=== PATIENT | female | born 1995 | race Two or more races ===

== ENCOUNTER 2019-09-23 11:36 | Emergency (ER) | payer MEDICAID, OTHER ==
[2019-09-23] MEDS ORDERED: METHYLPREDNISOLONE ACETATE INJ 40 MG/1 ML ML IM ONE (11:59)
[2019-09-23] MEDS ORDERED: DEXAMETHASONE SOD PHOS INJ 10 MG/1 ML VIAL IM ONE (11:59)
--- NOTE | 2019-09-23 12:02 | ER Document Report ---
HPI - HPI Onset: Other - This is a 23-year-old female presents to the emergency room today stating she had a cough runny nose congestion was starting 2 days ago moving into her upper respiratory area she has been afebrile no nausea no vomiting. She does have positive postnasal discharge. Pain Level: 2 Associated Symptoms: None, Rhinnorhea Exacerbated by: Denies - CONSTITUTIONAL Constitutional: DENIES: Fever, Chills - REPRODUCTIVE LMP: 08/31/19 Reproductive: DENIES: : Past Medical History - Social History Smoking Status: Current Every Day Smoker Chew tobacco use (# tins/day): No Frequency of alcohol use: None Drug Abuse: None Family History: None Patient has suicidal ideation: No Patient has homicidal ideation: No - Past Medical History Cardiac Medical History: Denies: Hx Coronary Artery Disease, Hx Heart Attack, Hx Hypertension Pulmonary Medical History: Denies: Hx Asthma, Hx Bronchitis, Hx COPD, Hx Pneumonia Neurological Medical History: Denies: Hx Cerebrovascular Accident, Hx Seizures GI Medical History: Musculoskeletal Medical History: Denies Hx Arthritis Infectious Medical History: Past Surgical History: Denies: Hx Pacemaker - Immunizations Immunizations up to date: Yes Hx Diphtheria, Pertussis, Tetanus Vaccination: Yes Vertical Provider Document - CONSTITUTIONAL Agree With Documented VS: Yes - INFECTION CONTROL TRAVEL OUTSIDE OF THE [place] IN LAST 30 DAYS: No - HEENT HEENT: Atraumatic, Conjuctival Injection, Normocephalic, PERRLA - NECK Neck: Normal Inspection - RESPIRATORY Respiratory: Breath Sounds Normal - CARDIOVASCULAR Pulses: Normal: Brachial, Radial, Carotid, Femoral, Popliteal - GI/ABDOMEN Gastrointestinal: Abdomen Soft, Abdomen Non-Tender - BACK Back: Normal Inspection Discharge - Discharge Clinical Impression: Allergic rhinitis Condition: Good Disposition: HOME, SELF-CARE Instructions: Reactive Airway Disease ([facility]) Prescriptions: Loratadine 10 mg PO QAM #30 tab.rapdis Referrals: PRATIBHA KIRKLAND MD [Primary Care Provider] - Follow up as needed
== END 2019-09-23 12:33 | disposition home or self-care (01) ==
LOC: ER 11:36
DX: J30.9 Allergic rhinitis, unspecified (principal); R05 Cough; R09.82 Postnasal drip; F17.200 Nicotine dependence, unspecified, uncomplicated
CPT/HCPCS: 99283; 96372; J1030; J1100

== ENCOUNTER → 2019-10-11 | Outpatient (CLI) | payer MEDICAID ==
--- NOTE | 2019-10-11 11:33 | ER RDC ASSESSMENT REPORT ---
Intake - In the Last 14 days Have you traveled outside [place]?: No Have you been in close contact with someone CONFIRMED: No Worked in Healthcare?: No - Symptoms Subjective Fever(Whick feverish): Yes Chills: Yes Muscule Aches: Yes Runny Nose: No Sore Throat: Yes Cough (New or worsening chronic cough): Yes Shortness of breath: Yes Nausea or Vomiting: Yes Headache: No Abdominal Pain: No Diarrhea(3 or more loose stools in last 24 hours): Yes - Do you have any of the following Chronic lung disease: Asthma or emphysema or COPD: Yes Chronic Lung Disease Comment: asthma Cystic Fibrosis: No Diabetes: Yes High Blood Pressure: No Cardiovascular Disease: No Chronic Kidney Disease: No Chronic Liver Disease: No Chronic blood disorder like Sickle Cell Disease: No Weak immune system due to disease or medication: No Neurologic condition that limits movement: No Developmental delay - Moderate to Severe: No Recent (within past 2 weeks) or current : No Morbid Obesity (>100 pounds over ideal weight): Yes - Objective Objective: Given above, testing performed: If Testing Performed: Test Specimen Type Sent to <JODIE ALANIZ - Last Filed: 10/11/19 11:28> - In the Last 14 days Have you traveled outside [place]?: No Have you been in close contact with someone CONFIRMED: No Worked in Healthcare?: No - Symptoms Subjective Fever(Whick feverish): Yes Chills: Yes Muscule Aches: Yes Runny Nose: Yes Sore Throat: Yes Cough (New or worsening chronic cough): Yes Shortness of breath: Yes Nausea or Vomiting: Yes Headache: No Abdominal Pain: No Diarrhea(3 or more loose stools in last 24 hours): Yes - Do you have any of the following Chronic lung disease: Asthma or emphysema or COPD: Yes Cystic Fibrosis: No Diabetes: Yes High Blood Pressure: No Cardiovascular Disease: No Chronic Kidney Disease: No Chronic Liver Disease: No Chronic blood disorder like Sickle Cell Disease: No Weak immune system due to disease or medication: No Neurologic condition that limits movement: No Developmental delay - Moderate to Severe: No Recent (within past 2 weeks) or current : No Morbid Obesity (>100 pounds over ideal weight): Yes - Objective Temperature: 97.7 F Pulse Rate: 110 Respiratory Rate: 20 Blood Pressure: 137/80 Objective: Given above, testing performed: If Testing Performed: Test Specimen Type Sent to <TARUN LINDA - Last Filed: 10/11/19 13:51> General - General Mode of Arrival: Ambulatory Information source: Patient - HPI Patient complains to provider of: fever 102, dry cough, SOB, sore throat Onset: Other - 10/08/2019 Onset/Duration: Gradual Quality of pain: No pain Associated symptoms: Body/muscle aches, Chills, Fever, Nausea, Rhinnorhea, Shortness of breath, Sore throat Similar symptoms previously: No Recently seen / treated by doctor: No <JODIE ALANIZ - Last Filed: 10/11/19 11:28> - General Information source: Patient - HPI Onset/Duration: Gradual Quality of pain: No pain Associated symptoms: Body/muscle aches, Chills, Fever, Nausea, Rhinnorhea, Shortness of breath, Sore throat Similar symptoms previously: No Recently seen / treated by doctor: No <LEANNE LINDAJESSICAMUMTAZ - Last Filed: 10/11/19 13:51> - General Chief Complaint: Flu Symptoms Stated Complaint: dry cough, SOB, fever 102 - Related Data Allergies/Adverse Reactions: Penicillins Allergy (Severe, Verified 09/23/19 11:53) unknown Sulfa (Sulfonamide Antibiotics) Allergy (Verified 09/23/19 11:53) cranberry Allergy (Uncoded 09/23/19 11:53) Past Medical History - Social History Family History: None - Past Medical History Cardiac Medical History: Denies: Hx Coronary Artery Disease, Hx Heart Attack, Hx Hypertension Pulmonary Medical History: Denies: Hx Asthma, Hx Bronchitis, Hx COPD, Hx Pneumonia Neurological Medical History: Denies: Hx Cerebrovascular Accident, Hx Seizures GI Medical History: Musculoskeletal Medical History: Denies Hx Arthritis Infectious Medical History: Past Surgical History: Denies: Hx Pacemaker <KATTYJODIE - Last Filed: 10/11/19 11:28> - General Information source: Patient <TARUN LINDA - Last Filed: 10/11/19 13:51> Physical Exam - General General appearance: Appears well, Alert In distress: None Notes: PHYSICAL EXAMINATION: GENERAL: Well-appearing and in no acute distress. HEAD: Atraumatic, normocephalic. EYES: sclera anicteric, conjunctiva are normal. ENT: nares patent. Moist mucous membranes. No potential airway compromise NECK: Normal range of motion, supple without lymphadenopathy LUNGS: Occasional dry cough with scattered wheezing HEART: Regular rate and rhythm without murmurs NEUROLOGICAL: Normal speech. PSYCH: Normal mood, normal affect. SKIN: Warm, Dry, normal turgor <TARUN LINDA - Last Filed: 10/11/19 13:51> Diagnostic Results Laboratory Results: Patient presents with upper respiratory symptoms worrisome for possible Covid 19. Patient does not have emergency worring symptoms such as difficulty breathing, shortness of breath, chest pain, pressure, confusion or cyanosis. Patient appears suitable for discharge. Patient's vital signs are stable and patient is nontoxic in appearance. Good return precautions have been discussed with patient, patient verbalized understanding and is agreeable with discharge plan of care at this time. <TARUN LINDA - Last Filed: 10/11/19 13:51> Patient Education/Counseling Counseling/Education: Patient advised that she is being tested through the respiratory diagnostic center and encouraged to contact either her primary doctor or the emergency department where she did start having any worsening of symptoms. Patient feels that she is stable and can manage her symptoms at home at this time. Patient was provided with discharge information including: As a person under investigation for Covid 19, the [place] department of Health and Human Services, division of public health advises you to adhere to the following guidance until your test results are reported to you. If your test result is positive, you will receive additional information from your provider and your local health department at that time. Remain at home until you are cleared by the health provider or public health authorities. Keep a log of visitors to your home, notify any visitors to your home of your isolation status. If you plan to move to a new address or leave the county, notify the local health department in your County. Call your doctor or seek care if you have an urgent medical need. Before seeking medical care, call ahead to get instructions from the provider before arriving at the medical office clinic or hospital. Notify them that you are being tested for the virus that causes Covid 19 so that arrangements can be made, as necessary, to prevent transmission to others in the healthcare setting. Next, notify the local health department in your county. If a medical emergency arises and you need to call 911, inform the first responders that you are being tested for the virus that causes Covid 19. Next, notify the local health department in your county. <TARUN LINDA - Last Filed: 10/11/19 13:51> RDC Discharge <JODIE ALANIZ - Last Filed: 10/11/19 11:28> - Discharge Disposition: Home; Selfcare <TARUN LINDA - Last Filed: 10/11/19 13:51> - Discharge Clinical Impression: covid-19 screening Upper respiratory infection Qualifiers: URI type: unspecified URI Qualified Code(s): J06.9 - Acute upper respiratory infection, unspecified Condition: Stable
[2019-10-11 12:25] VITALS: BP 137/80
[2019-10-11 13:41] LABS: A TYPE INFLUENZA AG NEGATIVE (NEGATIVE); B INFLUENZA AG NEGATIVE (NEGATIVE)
== END ==
LOC: RDC 11:14
PROVIDERS: ATTEND Nurse Practitioner Family
DX: Z20.828 Contact with and (suspected) exposure to other viral communicable diseases (principal); J06.9 Acute upper respiratory infection, unspecified; J02.9 Acute pharyngitis, unspecified; R50.9 Fever, unspecified; R09.89 Other specified symptoms and signs involving the circulatory and respiratory systems; M79.10 Myalgia, unspecified site; R06.02 Shortness of breath; R19.7 Diarrhea, unspecified; E11.9 Type 2 diabetes mellitus without complications; Z88.0 Allergy status to penicillin; Z88.2 Allergy status to sulfonamides; Z91.018 Allergy to other foods
CPT/HCPCS: 87070; 87635; 87804; 87880

== ENCOUNTER 2019-11-09 23:23 | Emergency (ER) | payer SELFPAY ==
--- NOTE | 2019-11-09 23:43 | ER Document Report ---
ED Medical Screen (RME) - General Chief Complaint: Urinary Problem Stated Complaint: URINATING BLOOD/VAGINAL PAIN Time Seen by Provider: 11/09/19 23:40 Mode of Arrival: Ambulatory Information source: Patient Notes: This 24-year-old female with history of diabetes and asthma presents today with complaints of lower abdominal pain, urinary frequency, pain with void, hematuria. Report symptoms started today. Denies fever vomiting diarrhea. Denies back pain. I have greeted and performed a rapid initial assessment of this patient. A comprehensive ED assessment and evaluation of the patient, analysis of test results and completion of the medical decision making process will be conducted by additional ED providers. TRAVEL OUTSIDE OF THE [place] IN LAST 30 DAYS: No - Related Data Allergies/Adverse Reactions: Penicillins Allergy (Severe, Verified 09/23/19 11:53) unknown Sulfa (Sulfonamide Antibiotics) Allergy (Verified 09/23/19 11:53) cranberry Allergy (Uncoded 09/23/19 11:53) Past Medical History - Past Medical History Cardiac Medical History: Denies: Hx Coronary Artery Disease, Hx Heart Attack, Hx Hypertension Pulmonary Medical History: Denies: Hx Asthma, Hx Bronchitis, Hx COPD, Hx Pneumonia Neurological Medical History: Denies: Hx Cerebrovascular Accident, Hx Seizures GI Medical History: Musculoskeltal Medical History: Denies Hx Arthritis Infectious Medical History: Past Surgical History: Denies: Hx Pacemaker - Immunizations Immunizations up to date: Yes Hx Diphtheria, Pertussis, Tetanus Vaccination: Yes Physical Exam - Vital signs Vitals: Temp Pulse Resp BP Pulse Ox 98.6 F 116 H 20 149/106 H 99 11/09/19 23:35 11/09/19 23:35 11/09/19 23:35 11/09/19 23:35 11/09/19 23:35 Course - Vital Signs Vital signs: Temp Pulse Resp BP Pulse Ox 98.6 F 116 H 20 149/106 H 99 11/09/19 23:35 11/09/19 23:35 11/09/19 23:35 11/09/19 23:35 11/09/19 23:35
[2019-11-10 00:24] LABS: ABSOLUTE BASOPHILS # (AUTO) 0.2 10^3/uL (0.0-0.2); ABSOLUTE EOSINOPHILS # (AUTO) 0.6 10^3/uL (0.0-0.6); ABSOLUTE LYMPHOCYTES (AUTO) 3.4 10^3/uL (0.5-4.7); ABSOLUTE NEUT (AUTO) 14.3 10^3/uL (1.7-8.2); BASOPHILS % (AUTO) 1.2 % (0-2); EOSINOPHILS % (AUTO) 3.2 % (0-6); HEMATOCRIT 37.6 % (36.0-47.0); HEMOGLOBIN 12.5 g/dL (12.0-15.5); LYMPHOCYTES % (AUTO) 17.6 % (13-45); MEAN CORPUSCULAR HEMOGLOBIN 27.4 pg (27.0-33.4); MEAN CORPUSCULAR HGB CONC 33.3 g/dL (32.0-36.0); MEAN CORPUSCULAR VOLUME 82 fl (80-97); MONOCYTES % (AUTO) 5.1 % (3-13); PLATELET COUNT 519 10^3/uL (150-450); RED BLOOD COUNT 4.58 10^6/uL (3.72-5.28); RED CELL DISTRIBUTION WIDTH 15.5 % (11.5-14.0); SEGMENTED NEUTROPHILS % (AUTO) 72.9 % (42-78); TOTAL CELLS COUNTED % (AUTO) 100 %; WHITE BLOOD COUNT 19.6 10^3/uL (4.0-10.5)
[2019-11-10 00:31] LABS: APPEARANCE,URINE CLOUDY; BILIRUBIN,URINE NEGATIVE (NEGATIVE); COLOR,URINE YELLOW; GLUCOSE, URINE NEGATIVE (NEGATIVE); KETONES,URINE NEGATIVE (NEGATIVE); LEUKOCYTE ESTERASE,URINE MODERATE (NEGATIVE); NITRITE,URINE NEGATIVE (NEGATIVE); PROTEIN,URINE 30 mg/dL (NEGATIVE); URINE SPECIFIC GRAVITY 1.013; UROBILINOGEN,URINE NEGATIVE mg/dL (<2.0)
[2019-11-10 00:43] LABS: ALBUMIN 3.8 g/dL (3.5-5.0); ALKALINE PHOSPHATASE 98 U/L (38-126); ANION GAP 8 (5-19); ASPARTATE AMINO TRANSFERASE 55 U/L (14-36); BILIRUBIN,TOTAL 0.3 mg/dL (0.2-1.3); BLOOD UREA NITROGEN 9 mg/dL (7-20); CALCIUM 9.2 mg/dL (8.4-10.2); CARBON DIOXIDE 27 mmol/L (22-30); CHLORIDE 100 mmol/L (98-107); GLUCOSE 135 mg/dL (75-110); POTASSIUM 4.1 mmol/L (3.6-5.0); TOTAL PROTEIN 7.4 g/dL (6.3-8.2)
[2019-11-10] MEDS ORDERED: RINGERS SOLUTION,LACTATED 1,000 ML IV ONE (03:30)
--- NOTE | 2019-11-10 03:32 | ER Document Report ---
ED GI/ - General Chief Complaint: Pain With Urination Stated Complaint: URINATING BLOOD/VAGINAL PAIN Time Seen by Provider: 11/09/19 23:40 Primary Care Provider: JOZEF DOHERTY PA-C [Primary Care Provider] - Follow up as needed Mode of Arrival: Ambulatory Information source: Patient Notes: 24-year-old female past medical history significant for diabetes, asthma, re current UTIs presents to the emergency room complaining of dysuria that started yesterday. States she took Azo without relief. Woke up early this morning to pee and noticed that there was blood in her urine. She denies any fevers. No other medications or symptoms. States hasnever followed up with urology that her UTIs are managed by her primary care physician. TRAVEL OUTSIDE OF THE [place] IN LAST 30 DAYS: No - Related Data Allergies/Adverse Reactions: Penicillins Allergy (Severe, Verified 09/23/19 11:53) unknown ciprofloxacin [From Cipro] Allergy (Verified 11/10/19 04:43) Sulfa (Sulfonamide Antibiotics) Allergy (Verified 09/23/19 11:53) cranberry Allergy (Uncoded 09/23/19 11:53) Home Medications: metformin 1g BID. QVar MDI 2 puff daily. Albuterol MDI PRN Past Medical History - General Information source: Patient - Social History Smoking Status: Current Every Day Smoker Chew tobacco use (# tins/day): No Frequency of alcohol use: Rare Drug Abuse: None Lives with: Family Family History: None Patient has homicidal ideation: No - Past Medical History Cardiac Medical History: Denies: Hx Coronary Artery Disease, Hx Heart Attack, Hx Hypertension Pulmonary Medical History: Reports: Hx Asthma Denies: Hx Bronchitis, Hx COPD, Hx Pneumonia Neurological Medical History: Denies: Hx Cerebrovascular Accident, Hx Seizures Endocrine Medical History: Reports: Hx Diabetes Mellitus Type 2 GI Medical History: Musculoskeletal Medical History: Denies Hx Arthritis Infectious Medical History: Past Surgical History: Denies: Hx Pacemaker - Immunizations Immunizations up to date: Yes Hx Diphtheria, Pertussis, Tetanus Vaccination: Yes Review of Systems - Review of Systems Constitutional: No symptoms reported Cardiovascular: No symptoms reported Respiratory: No symptoms reported Gastrointestinal: No symptoms reported Genitourinary: Dysuria, Hematuria, Urgency Musculoskeletal: No symptoms reported Skin: No symptoms reported Neurological/Psychological: No symptoms reported -: Yes All other systems reviewed and negative Physical Exam - Vital signs Vitals: Temp Pulse Resp BP Pulse Ox 98.6 F 116 H 20 149/106 H 99 11/09/19 23:35 11/09/19 23:35 11/09/19 23:35 11/09/19 23:35 11/09/19 23:35 - General General appearance: Appears well, Alert In distress: Mild - HEENT Head: Normocephalic, Atraumatic Eyes: Normal Pupils: PERRL - Respiratory Respiratory status: No respiratory distress Chest status: Nontender Breath sounds: Normal Chest palpation: Normal - Cardiovascular Rhythm: Tachycardia Heart sounds: Normal auscultation Murmur: No Friction rub: No - Abdominal Inspection: Morbidly Obese Distension: No distension Tenderness: Tender - Right lower quadrant. No: Guarding, Rebound Organomegaly: No organomegaly - Back Back: Normal. No: CVA tenderness - Neurological Neuro grossly intact: Yes Cognition: Normal Orientation: AAOx4 Antony Coma Scale Eye Opening: Spontaneous Antony Coma Scale Verbal: Oriented Cartwright Coma Scale Motor: Obeys Commands Cartwright Coma Scale Total: 15 Speech: Normal Motor strength normal: LUE, RUE, LLE, RLE Sensory: Normal - Skin Skin Temperature: Warm Skin Moisture: Dry Skin Color: Normal Course - Re-evaluation Re-evalutation: 11/10/19 04:35 Nurse notified provider that after starting the IV Cipro patient started complaining of itching and redness at the IV site. Patient has a history as to both penicillin and sulfa. Patient was diagnosed with medication allergies by blood test as a child. IV Cipro was DC'd will hold off on any other antibiotics untill CT abdomen and pelvis is completed. 11/10/19 05:33 Patient is resting comfortably she is pain-free on exam. Site of erythema and itching at the IV site to the right antecubital has resolved after stopping IV Cipro. Patient was counseled to stop her metformin for the next 48 hours after receivin g IV contrast dye. Push fluids. Antibiotics as prescribed. Patient was counseled on need to follow-up with her primary care physician for possible urology referral secondary to her frequent UTIs. She was given strict return to the emergency room guidelines. Return for any new or worsening symptoms. All questions were answered. Patient verbalized understanding and agrees with plan of care. - Vital Signs Vital signs: Temp Pulse Resp BP Pulse Ox 98.3 F 93 15 136/74 H 100 11/10/19 06:52 11/10/19 06:52 11/10/19 06:52 11/10/19 06:52 11/10/19 06:52 - Laboratory Result Diagrams: 11/10/19 00:10 11/10/19 00:10 Laboratory results interpreted by me: 11/10/19 11/10/19 11/10/19 00:00 00:10 00:10 WBC 19.6 H RDW 15.5 H Plt Count 519 H Absolute Neuts (auto) 14.3 H Sodium 134.9 L Glucose 135 H AST 55 H ALT 58 H Urine Protein 30 H Urine Blood LARGE H Ur Leukocyte Esterase MODERATE H - Diagnostic Test Radiology reviewed: Reports reviewed Discharge - Discharge Clinical Impression: Pain, abdominal, unknown etiology UTI (urinary tract infection) Qualifiers: Urinary tract infection type: site unspecified Hematuria presence: with hematuria Qualified Code(s): N39.0 - Urinary tract infection, site not specified Leukocytosis Qualifiers: Leukocytosis type: unspecified Qualified Code(s): D72.829 - Elevated white blood cell count, unspecified Condition: Stable Disposition: HOME, SELF-CARE Instructions: Abdominal Pain ([facility]), Leukocytosis ([facility]), Nitrofurantoin ([facility]), Urinary Tract Infection ([facility]) Additional Instructions: Push fluids, antibiotics as prescribed. Do not take your metformin for the next 48 hours. Outpatient follow-up primary care physician return for any new or worsening symptoms. Prescriptions: Nitrofurantoin Monohyd/M-Cryst [Macrobid 100 mg Capsule] 100 mg PO BID 7 Days #13 cap Phenazopyridine HCl [Pyridium 200 mg Tablet] 200 mg PO TID 2 Days #6 tablet Referrals: JOZEF DOHERTY PA-C [Primary Care Provider] - Follow up as needed
[2019-11-10] MEDS ORDERED: CIPROFLOXACIN 400 MG/D5W RTU 400 MG/200 ML RTUPB IV SCH (04:00)
--- NOTE | 2019-11-10 05:21 | RADIOLOGY REPORT (SQ) ---
EXAM: CT abdomen and pelvis with IV contrast CLINICAL DATA: 24-year-old female with abdominal pain, hematuria and dysuria TECHNICAL DATA: Axial CT imaging of the abdomen and pelvis was performed following the administration of intravenous contrast.. Sagittal and coronal reconstructed images were then performed. The CT study is performed according to ALARA (as low as reasonably achievable) or ALARA/IMAGE GENTLY, with automatic adjustment of mA and/or kV according to patient size. Performed on: 11/10/2019 at 4:50 AM. Comparison: Abdominal ultrasound performed on 07/31/2012 FINDINGS: Lung bases: The lung bases are clear. Liver: The liver is enlarged and measures 24 cm in craniocaudal dimension. No focal hepatic abnormalities are identified. There is diffusely decreased attenuation of the liver commonly due to fatty infiltration. Spleen:The spleen is normal is size, configuration and attenuation. Gallbladder and bile duct: The gallbladder is surgically absent. There is no biliary ductal dilatation. Pancreas: The pancreas is grossly normal in size and configuration. Adrenal Glands:The adrenal glands are normal in size and configuration. Kidneys:The kidneys are normal in size and configuration. There is no evidence of hydronephrosis. There is no evidence of nephrolithiasis. There is an approximately 2.2 x 2.9 cm focal area of decreased attenuation within the midpole of the right kidney. Statistically, this likely represents a benign renal cyst. Stomach:The stomach is grossly normal. There is no definite hiatal hernia. Bowel:The bowel gas pattern is non specific and non obstructive. Appendix: The appendix is normal. Free air:There is no evidence of free air. Free fluid: There is no evidence of free fluid. Vasculature: The aorta is normal in caliber and contour. The inferior vena cava is grossly unremarkable. Lymphadenopathy: No pathologic lymphadenopathy is identified. Bladder: The bladder is partially distended and smooth in contour. Reproductive: The uterus is grossly within normal limits. Bones: No acute osseous abnormalities are identified. Soft tissues: No focal soft tissue abnormalities are identified. IMPRESSION: 1. Hepatomegaly and fatty infiltration of the liver. 2. Remote cholecystectomy. 3. Approximately 2.9 cm focal area of decreased attenuation in the mid pole of the right kidney. Statistically this likely represents a benign renal cyst. 4. No evidence of acute intra-abdominal or intrapelvic pathology. There is no evidence of urinary tract obstruction or evidence of acute bowel pathology.
[2019-11-10] MEDS ORDERED: NITROFURANTOIN MONOHYD/M-CRYST 100 MG CAPSULE PO ONE (05:31)
[2019-11-10 06:55] VITALS: BP 136/74
== END 2019-11-10 06:52 | disposition home or self-care (01) ==
LOC: ER 23:23
DX: N39.0 Urinary tract infection, site not specified (principal); R31.0 Gross hematuria; R10.9 Unspecified abdominal pain; R10.813 Right lower quadrant abdominal tenderness; R30.0 Dysuria; R39.15 Urgency of urination; L29.9 Pruritus, unspecified; L53.9 Erythematous condition, unspecified; F17.200 Nicotine dependence, unspecified, uncomplicated; E11.9 Type 2 diabetes mellitus without complications; J45.909 Unspecified asthma, uncomplicated; Z79.51 Long term (current) use of inhaled steroids; Z79.84 Long term (current) use of oral hypoglycemic drugs; Z88.0 Allergy status to penicillin; Z88.1 Allergy status to other antibiotic agents; Z88.2 Allergy status to sulfonamides; Z91.018 Allergy to other foods
CPT/HCPCS: 99284; 96361; 96374; 36415; 87040; 83605; 85025; 81025; 80053; 81001; 74177; J7120; J0744; J8499

== ENCOUNTER 2020-05-28 12:57 | Emergency (ER) | payer SELFPAY ==
[2020-05-28] MEDS ORDERED: NORMAL SALINE 1000 ML 1,000 ML IV ONE (13:44)
--- NOTE | 2020-05-28 13:46 | ER Document Report ---
ED Medical Screen (RME) - General Chief Complaint: Flank Pain Stated Complaint: FLANK PAIN Time Seen by Provider: 05/28/20 13:31 Primary Care Provider: JOZEF DOHERTY PA-C [Primary Care Provider] - Follow up as needed TRAVEL OUTSIDE OF THE [place] IN LAST 30 DAYS: No - HPI Notes: 05/28/20 13:44 23-year-old female with a history of type 2 diabetes on Metformin presents to the emergency room today with right upper quadrant abdominal pain and flank pain that has become progressively worse over the last 3 days. Patient felt she was having a UTI, she started taking AZO without relief. Denies any vaginal bleeding or vaginal discharge. States she checked her blood sugar this morning and it was 351, she does take Metformin 1 g twice daily. Last menstrual cycle was 05/20/2020. Reports she has had some nausea and vomiting over the last 2 days. Has increased polyuria, polydipsia, denies polyphagia. Denies history of DKA I have greeted and performed a rapid initial assessment of this patient. A comprehensive ED assessment and evaluation of the patient, analysis of test results and completion of the medical decision making process will be conducted by additional ED providers. PHYSICAL EXAMINATION: GENERAL: Well-appearing, well-nourished and in no acute distress. HEAD: Atraumatic, normocephalic. CV: s1, s2 regular LUNGS: No respiratory distress abd: RUQ abd tenderness, R cva tenderness on exam - Related Data Allergies/Adverse Reactions: Penicillins Allergy (Severe, Verified 05/28/20 13:23) unknown ciprofloxacin [From Cipro] Allergy (Verified 05/28/20 13:23) Sulfa (Sulfonamide Antibiotics) Allergy (Verified 05/28/20 13:23) cranberry Allergy (Uncoded 05/28/20 13:23) Past Medical History - Social History Chew tobacco use (# tins/day): No Frequency of alcohol use: None Drug Abuse: None - Past Medical History Cardiac Medical History: Denies: Hx Coronary Artery Disease, Hx Heart Attack, Hx Hypertension Pulmonary Medical History: Reports: Hx Asthma Denies: Hx Bronchitis, Hx COPD, Hx Pneumonia Neurological Medical History: Denies: Hx Cerebrovascular Accident, Hx Seizures Endocrine Medical History: Reports: Hx Diabetes Mellitus Type 2 GI Medical History: Musculoskeltal Medical History: Denies Hx Arthritis Infectious Medical History: Past Surgical History: Denies: Hx Pacemaker - Immunizations Immunizations up to date: Yes Hx Diphtheria, Pertussis, Tetanus Vaccination: Yes Physical Exam - Vital signs Vitals: Temp Pulse Resp BP Pulse Ox 97.9 F 123 H 20 154/93 H 100 05/28/20 13:03 05/28/20 13:03 05/28/20 13:03 05/28/20 13:03 05/28/20 13:03 Course - Vital Signs Vital signs: Temp Pulse Resp BP Pulse Ox 97.9 F 123 H 20 154/93 H 100 05/28/20 13:03 05/28/20 13:03 05/28/20 13:03 05/28/20 13:03 05/28/20 13:03 Doctor's Discharge - Discharge Referrals: JOZEF DOHERTY PA-C [Primary Care Provider] - Follow up as needed
[2020-05-28 14:42] LABS: ABSOLUTE BASOPHILS # (AUTO) 0.2 10^3/uL (0.0-0.2); ABSOLUTE EOSINOPHILS # (AUTO) 0.6 10^3/uL (0.0-0.6); ABSOLUTE LYMPHOCYTES (AUTO) 3.7 10^3/uL (0.5-4.7); ABSOLUTE MONOCYTES (AUTO) 0.8 10^3/uL (0.1-1.4); ABSOLUTE NEUT (AUTO) 8.2 10^3/uL (1.7-8.2); BASOPHILS % (AUTO) 1.2 % (0-2); EOSINOPHILS % (AUTO) 4.6 % (0-6); HEMATOCRIT 39.2 % (36.0-47.0); HEMOGLOBIN 12.8 g/dL (12.0-15.5); LYMPHOCYTES % (AUTO) 27.1 % (13-45); MEAN CORPUSCULAR HGB CONC 32.5 g/dL (32.0-36.0); MEAN CORPUSCULAR VOLUME 83 fl (80-97); MONOCYTES % (AUTO) 6.2 % (3-13); PLATELET COUNT 436 10^3/uL (150-450); RED BLOOD COUNT 4.72 10^6/uL (3.72-5.28); RED CELL DISTRIBUTION WIDTH 15.3 % (11.5-14.0); SEGMENTED NEUTROPHILS % (AUTO) 60.9 % (42-78); TOTAL CELLS COUNTED % (AUTO) 100 %; WHITE BLOOD COUNT 13.5 10^3/uL (4.0-10.5)
[2020-05-28 14:59] LABS: ANION GAP 8 (5-19)
[2020-05-28 16:04] LABS: ALBUMIN 3.9 g/dL (3.5-5.0); ALKALINE PHOSPHATASE 112 U/L (38-126); ASPARTATE AMINO TRANSFERASE 79 U/L (14-36); BILIRUBIN,DIRECT 0.2 mg/dL (0.0-0.4); BILIRUBIN,TOTAL 0.3 mg/dL (0.2-1.3); BLOOD UREA NITROGEN 9 mg/dL (7-20); CALCIUM 9.6 mg/dL (8.4-10.2); CARBON DIOXIDE 26 mmol/L (22-30); CHLORIDE 103 mmol/L (98-107); GLUCOSE 307 mg/dL (75-110); POTASSIUM 4.6 mmol/L (3.6-5.0); TOTAL PROTEIN 7.6 g/dL (6.3-8.2)
[2020-05-28] MEDS ORDERED: ONDANSETRON 4 MG TAB.RAPDIS PO ONE (16:45)
--- NOTE | 2020-05-28 17:24 | ER Document Report ---
ED GI/ - General Chief Complaint: Flank Pain Stated Complaint: FLANK PAIN Time Seen by Provider: 05/28/20 13:31 Primary Care Provider: JOZEF DOHERTY PA-C [Primary Care Provider] - Follow up as needed Notes: CHIEF COMPLAINT: Dysuria and right flank pain HPI: 24-year-old female who is morbidly obese with type 2 diabetes presenting for evaluation of dysuria over the last 3 days with some pain in the right flank and right upper quadrant region. Has had nausea no vomiting. Low-grade fever. Denies lower abdominal pain. Has been taking Azo at home ROS: See HPI - all other systems were reviewed and are otherwise negative Constitutional: no fever Eyes: no drainage, no blurred vision ENT: no runny nose, no sore throat Cardiovascular: no chest pain Resp: no SOB, no cough GI: no vomiting, no diarrhea, + abdominal pain, positive nausea : + dysuria Integumentary: no rash Allergy: no hives Musculoskeletal: no extremity pain or swelling Neurological: no numbness/tingling, no weakness MEDICATIONS: I agree with the patient medications as charted by the RN. ALLERGIES: I agree with the allergies as charted by the RN. PAST MEDICAL HISTORY/PAST SURGICAL HISTORY: Reviewed and agree as charted by RN. SOCIAL HISTORY: Reviewed and agree as charted by RN. FAMILY HISTORY: No significant familial comorbid conditions directly related to patient complaint EXAM: Reviewed vital signs as charted by RN. CONSTITUTIONAL: Alert and oriented and responds appropriately to questions. Well-appearing; well-nourished HEAD: Normocephalic; atraumatic EYES: Conjunctivae clear, sclerae non-icteric ENT: normal nose; no rhinorrhea; moist mucous membranes NECK: Supple without meningismus; non-tender; no cervical lymphadenopathy, no masses CARD: RRR; no murmurs, no clicks, no rubs, no gallops; symmetric distal pulses RESP: Normal chest excursion without splinting or tachypnea; breath sounds clear and equal bilaterally; no wheezes, no rhonchi, no rales, pulse oximetry 99% on room air not hypoxic ABD/GI: Morbidly obese, normal bowel sounds; non-distended; soft, mild tenderness in the right upper quadrant right lateral flank region on palpation, no rebound, no guarding; no palpable organomegaly or masses. BACK: The back appears normal and is non-tender to palpation, there is no CVA tenderness EXT: Normal ROM in all joints; non-tender to palpation; no cyanosis, no effusions, no edema SKIN: Normal color for age and race; warm; dry; good turgor; no acute lesions noted NEURO: Moves all extremities equally; Motor and sensory function intact PSYCH: The patient's mood and manner are appropriate. Grooming and personal hygiene are appropriate. MDM: 24-year-old female right upper quadrant right flank pain with dysuria. Initial screening labs and work-up through the triage process. Suspect acute cystitis or early pyelonephritis. TRAVEL OUTSIDE OF THE [place] IN LAST 30 DAYS: No - Related Data Allergies/Adverse Reactions: Penicillins Allergy (Severe, Verified 05/28/20 13:23) unknown ciprofloxacin [From Cipro] Allergy (Verified 05/28/20 13:23) Sulfa (Sulfonamide Antibiotics) Allergy (Verified 05/28/20 13:23) cranberry Allergy (Uncoded 05/28/20 13:23) Past Medical History - Social History Smoking Status: Current Every Day Smoker Chew tobacco use (# tins/day): No Frequency of alcohol use: None Drug Abuse: None Family History: None Patient has homicidal ideation: No - Past Medical History Cardiac Medical History: Denies: Hx Coronary Artery Disease, Hx Heart Attack, Hx Hypertension Pulmonary Medical History: Reports: Hx Asthma Denies: Hx Bronchitis, Hx COPD, Hx Pneumonia Neurological Medical History: Denies: Hx Cerebrovascular Accident, Hx Seizures Endocrine Medical History: Reports: Hx Diabetes Mellitus Type 2 GI Medical History: Musculoskeletal Medical History: Denies Hx Arthritis Infectious Medical History: Past Surgical History: Denies: Hx Pacemaker - Immunizations Immunizations up to date: Yes Hx Diphtheria, Pertussis, Tetanus Vaccination: Yes Physical Exam - Vital signs Vitals: Temp Pulse Resp BP Pulse Ox 97.9 F 123 H 20 154/93 H 100 05/28/20 13:03 05/28/20 13:03 05/28/20 13:03 05/28/20 13:03 05/28/20 13:03 Course - Re-evaluation Re-evalutation: 05/28/20 18:24 Patient has had a prior cholecystectomy. Her ultrasound and urine did not show definitive evidence of pyelonephritis. Given her continued discomfort will obtain CT imaging to further evaluate the abdomen for surgical or infectious process. 05/28/20 19:34 CT imaging does not show acute emergent findings. She has a renal cyst on the right which appears to have increased in size over the last 6 months. Will refer patient to urology for follow-up. Patient lab work does not show any actionable items, mild leukocytosis. No definitive causation for her pain today. We will place her on a short course of pain medication. 05/28/20 19:42 I personally rechecked the patient's heart rate and it is 80 by radial pulse. We discussed her findings. She will be discharged to follow-up with urology she has no knowledge of prior renal cyst - Vital Signs Vital signs: Temp Pulse Resp BP Pulse Ox 97.9 F 123 H 20 154/93 H 100 05/28/20 13:03 05/28/20 13:03 05/28/20 13:03 05/28/20 13:03 05/28/20 13:03 - Laboratory Result Diagrams: 05/28/20 14:28 05/28/20 14:28 Laboratory results interpreted by me: 05/28/20 05/28/20 05/28/20 14:28 14:28 17:12 WBC 13.5 H RDW 15.3 H Sodium 136.6 L Glucose 307 H AST 79 H ALT 61 H Urine Glucose (UA) >=500 H Discharge - Discharge Clinical Impression: Abdominal pain, right upper quadrant, Renal cyst Condition: Stable Disposition: HOME, SELF-CARE Additional Instructions: There was not a definitive cause noted for your abdominal pain complaint today. It does not appear that you have a urinary infection. You do have a renal cyst on the right kidney that is increased in size since her previous imaging studies. Follow this up with urology call for appointment. This may be contributing to some of the discomfort that you are having. Pain medication as prescribed no driving if taking narcotics for pain Prescriptions: Tramadol HCl [Ultram 50 mg Tablet] 50 mg PO Q6HP PRN #12 tab PRN Reason: Referrals: JOZEF DOHERTY PA-C [Primary Care Provider] - Follow up as needed
[2020-05-28 17:52] LABS: AMORPHOUS SEDIMENT,URINE TRACE /HPF; APPEARANCE,URINE CLOUDY; BILIRUBIN,URINE NEGATIVE (NEGATIVE); COLOR,URINE YELLOW; GLUCOSE, URINE >=500 mg/dL (NEGATIVE); KETONES,URINE NEGATIVE (NEGATIVE); LEUKOCYTE ESTERASE,URINE NEGATIVE (NEGATIVE); NITRITE,URINE NEGATIVE (NEGATIVE); PROTEIN,URINE NEGATIVE (NEGATIVE); URINE SPECIFIC GRAVITY 1.022; UROBILINOGEN,URINE NEGATIVE mg/dL (<2.0)
--- NOTE | 2020-05-28 18:14 | RADIOLOGY REPORT (SQ) ---
EXAM DESCRIPTION: U/S ABDOMEN LIMITED W/O DOP IMAGES COMPLETED DATE/TIME: 05/28/2020 2:59 pm REASON FOR STUDY: RUQ/RT FLANK PAIN COMPARISON: 07/31/2012 TECHNIQUE: Dynamic and static grayscale images acquired of the abdomen and recorded on PACS. Additio nal selected color Doppler and spectral images recorded. LIMITATIONS: Limited due to body habitus and bowel gas. FINDINGS: PANCREAS: No masses. Visualized pancreatic duct normal caliber. LIVER: Fatty liver. Hepatomegaly, the liver measures 24.8 cm in length. LIVER VASCULATURE: Normal directional flow of the main portal vein and hepatic veins. GALLBLADDER: Prior cholecystectomy. ULTRASOUND-DETECTED MERCHANT'S SIGN: Negative. INTRAHEPATIC DUCTS AND COMMON DUCT: CBD not visualized due to overlying bowel gas. The intrahepatic ducts normal caliber. No filling defects. INFERIOR VENA CAVA: Not imaged. AORTA: No aneurysm. RIGHT KIDNEY: The right kidney measures 12.8 cm in length, normal size. Normal echogenicity. No diana id or suspicious masses. No hydronephrosis. No calcifications. PERITONEAL AND RIGHT PLEURAL SPACE: No ascites or effusions. OTHER: No other significant findings. IMPRESSION: 1. Examination is limited due to patient body habitus and bowel gas. 2. Fatty liver. Hepatomegaly. 3. Prior cholecystectomy. TECHNICAL DOCUMENTATION: JOB ID: [id number] 2010 [email or web address]- All Rights Reserved Reading location - IP/workstation name: [email or web address]
--- NOTE | 2020-05-28 19:30 | RADIOLOGY REPORT (SQ) ---
EXAM DESCRIPTION: CT ABD/PELVIS WITH IV ONLY IMAGES COMPLETED DATE/TIME: 05/28/2020 7:14 pm REASON FOR STUDY: RUQ pain COMPARISON: 11/10/2019 TECHNIQUE: CT scan of the abdomen and pelvis performed using helical scanning technique with dynamic intravenous contrast injection. No oral contrast. Images reviewed with lung, soft tissue, and bone windows. Reconstructed coronal and sagittal MPR images reviewed. Delayed images for evaluation of the urinary system also acquired. All images stored on PACS. All CT scanners at this facility use dose modulation, iterative reconstruction, and/or weight based d osing when appropriate to reduce radiation dose to as low as reasonably achievable (ALARA). [facility]: Dose Right [facility]: CareDose [facility]: Dose Right [facility]: Teradose 4D [facility]: Moat CONTRAST TYPE AND DOSE: contrast/concentration: Isovue 350.00 mmol/ml; Total Contrast Delivered: 98. 9 ml; Total Saline Delivered: 58.9 ml RENAL FUNCTION: None required. The patient is less than 50 years old. RADIATION DOSE: CT Rad equipment meets quality standard of care and radiation dose reduction techniq ues were employed. CTDIvol: NaN - NaN mGy. DLP: 0 mGy-cm.. LIMITATIONS: None. FINDINGS: LOWER CHEST: No significant findings. No nodules or infiltrates. LIVER: Fatty liver. Hepatomegaly. These findings are unchanged from the prior examination. The he patic and portal veins are patent. SPLEEN: Normal size. No focal lesions. PANCREAS: No masses. No significant calcifications. No adjacent inflammation or peripancreatic fluid collections. Pancreatic duct not dilated. GALLBLADDER: No identified stones by CT criteria. No inflammatory changes to suggest cholecystitis. ADRENAL GLANDS: No significant masses or asymmetry. RIGHT KIDNEY AND URETER: The thinly septated hypoattenuated lesion in the mid pole of the kidney has increased in size and measures approximately 4.8 cm in diameter(coronal image 50, series 601, compar ed to 3.1 cm on the prior study). No solid masses. No significant calcifications. No hydronephro sis or hydroureter. LEFT KIDNEY AND URETER: No solid masses. No significant calcifications. No hydronephrosis or hydr oureter. AORTA AND VESSELS: No aneurysm. No dissection. Renal arteries, SMA, celiac without stenosis. RETROPERITONEUM: No retroperitoneal adenopathy, hemorrhage or masses. BOWEL AND PERITONEAL CAVITY: No masses or inflammatory changes. No free fluid or peritoneal masses. APPENDIX: Normal. PELVIS: No mass. No free fluid. Normal bladder. ABDOMINAL WALL: No masses. No hernias. BONES: The osseous structures are stable in appearance. OTHER: No other significant finding. IMPRESSION: 1. The hypoattenuated thinly septated lesion in the mid pole of the right kidney has in creased in size since the prior study dated 11/10/2019. Correlation suggested. 2. Fatty liver. Hepatomegaly. 3. Prior cholecystectomy. TECHNICAL DOCUMENTATION: JOB ID: [id number] Quality ID # [id number]: Final reports with documentation of one or more dose reduction techniques (e.g., Au tomated exposure control, adjustment of the mA and/or kV according to patient size, use of iterative reconstruction technique) 2010 [employer]- All Rights Reserved Reading location - IP/workstation name: [id number]
[2020-05-28 19:48] VITALS: BP 120/66
== END 2020-05-28 19:55 | disposition home or self-care (01) ==
LOC: ER 12:57
DX: N28.1 Cyst of kidney, acquired (principal); R10.9 Unspecified abdominal pain; R30.0 Dysuria; R11.0 Nausea; R50.9 Fever, unspecified; E66.01 Morbid (severe) obesity due to excess calories; E11.9 Type 2 diabetes mellitus without complications; Z88.0 Allergy status to penicillin; Z88.3 Allergy status to other anti-infective agents; Z88.2 Allergy status to sulfonamides; Z90.49 Acquired absence of other specified parts of digestive tract
CPT/HCPCS: 99285; 36415; 84702; 83690; 85025; 80053; 81001; 76705; 74177; S0119

== ENCOUNTER 2020-05-29 18:03 | Emergency (ER) | payer SELFPAY ==
--- NOTE | 2020-05-29 19:17 | ER Document Report ---
ED General - General Chief Complaint: Bloody Stools Stated Complaint: POSSIBLE BLOODY STOOL Time Seen by Provider: 05/29/20 19:15 Primary Care Provider: FRANCY DOHERTY PA-C [Primary Care Provider] - Follow up as needed TRAVEL OUTSIDE OF THE [place] IN LAST 30 DAYS: No - HPI Notes: 24-year-old female presents with blood in her stool. Patient states that she has had 3 episodes today of bright red blood while using the bathroom. Patient states that the first episode was not that much, mostly was on the toilet paper when wiping. The next episode was a little bit more. She states that the third episode the blood filled the bowl, she states that she had the urge to have a bowel movement however a blood clot came out, no stool. She has had a few days of nausea, vomiting and diarrhea. She is actually seen in the emergency department yesterday for right side pain, had an unrevealing work-up. She reports she is still having some nausea. She denies previous history of rectal bleeding. Denies use of blood thinners. Denies previous history of bowel disease. - Related Data Allergies/Adverse Reactions: Penicillins Allergy (Severe, Verified 05/28/20 13:23) unknown ciprofloxacin [From Cipro] Allergy (Verified 05/28/20 13:23) Sulfa (Sulfonamide Antibiotics) Allergy (Verified 05/28/20 13:23) cranberry Allergy (Uncoded 05/28/20 13:23) Home Medications: metformin Past Medical History - General Information source: Patient - Social History Smoking Status: Current Every Day Smoker Frequency of alcohol use: None Drug Abuse: None Family History: None Patient has homicidal ideation: No - Past Medical History Cardiac Medical History: Denies: Hx Coronary Artery Disease, Hx Heart Attack, Hx Hypertension Pulmonary Medical History: Reports: Hx Asthma Denies: Hx Bronchitis, Hx COPD, Hx Pneumonia Neurological Medical History: Reports: Hx Migraine. Denies: Hx Cerebrovascular Accident, Hx Seizures Endocrine Medical History: Reports: Hx Diabetes Mellitus Type 2 GI Medical History: Musculoskeletal Medical History: Denies Hx Arthritis Infectious Medical History: Past Surgical History: Reports: Hx Section, Hx Cholecystectomy. Denies: Hx Pacemaker - Immunizations Immunizations up to date: Yes Hx Diphtheria, Pertussis, Tetanus Vaccination: Yes Review of Systems - Review of Systems Constitutional: No symptoms reported EENT: No symptoms reported Cardiovascular: No symptoms reported Respiratory: No symptoms reported Gastrointestinal: See HPI Genitourinary: No symptoms reported Female Genitourinary: No symptoms reported Musculoskeletal: No symptoms reported Skin: No symptoms reported Hematologic/Lymphatic: No symptoms reported Neurological/Psychological: No symptoms reported Physical Exam - Vital signs Vitals: Temp 98.6 F 05/29/20 18:12 - General General appearance: Appears well, Alert In distress: None - HEENT Head: Normocephalic, Atraumatic Eyes: No: Scleral icterus Extraocular movements intact: Yes Pupils: PERRL - Respiratory Breath sounds: Normal - Cardiovascular Rhythm: Regular Heart sounds: Normal auscultation - Abdominal Inspection: Morbidly Obese Bowel sounds: Normal Tenderness: Nontender - Rectal Notes: There are 3 external hemorrhoids present, soft. On rectal exam there feels to be an internal hemorrhoid at the 12 o'clock position, had a small amount of clotted blood return. No francy rectal bleeding. - Extremities General upper extremity: Normal ROM General lower extremity: Normal ROM - Neurological Neuro grossly intact: Yes Cognition: Normal Orientation: AAOx4 - Psychological Associated symptoms: Normal affect - Skin Skin Temperature: Warm Course - Re-evaluation Re-evalutation: 24-year-old female here with 3 episodes of BRBPR. Seen yesterday in the emergency department for right side pain, she had a negative ultrasound though status post cholecystectomy, and a negative CT scan. Has had several days of diarrhea. On exam her abdomen is soft without focal area of tenderness, she does have external hemorrhoids and what feels to be internal hemorrhoids with some blood return when palpating the area, suspect this to be the cause of her bleeding. Given that her CT yesterday did not demonstrate signs of diverticulitis or colitis, do not feel that a another CT is warranted today. Will be given Compazine for symptomatic control. 05/29/20 21:18 Leukocytosis without left shift, likely reactionary. Hemoglobin is stable as compared to yesterday. Electrolytes okay, creatinine within normal limits. Mild increase in LFTs. Possible representing viral etiology. 05/29/20 21:18 Patient to be signed out pending urine, anticipate discharge home - Vital Signs Vital signs: Temp Pulse Resp BP Pulse Ox 98.6 F 17 149/83 H 99 05/29/20 18:12 05/29/20 19:01 05/29/20 19:01 05/29/20 19:01 - Laboratory Result Diagrams: 05/29/20 18:13 05/29/20 18:13 Laboratory results interpreted by me: 05/29/20 05/29/20 18:13 18:13 WBC 15.8 H RDW 15.2 H Plt Count 467 H Absolute Neuts (auto) 10.5 H Sodium 135.7 L Glucose 206 H AST 91 H ALT 62 H Discharge - Discharge Clinical Impression: Rectal bleeding Hemorrhoids Qualifiers: Hemorrhoid type: unspecified Qualified Code(s): K64.9 - Unspecified hemorrhoids Disposition: HOME, SELF-CARE Additional Instructions: Use Zofran as needed for nausea. Be sure to drink plenty of fluids. Have close well with your primary care doctor. Avoid any straining or hard wiping peer return to the emergency department for any concerning worsening symptoms. Prescriptions: Ondansetron [Zofran Odt 4 mg Tablet] 1 tab PO Q4H PRN #15 tab.rapdis PRN Reason: For Nausea/Vomiting Referrals: FRANCY DOHERTY PA-C [Primary Care Provider] - Follow up as needed
[2020-05-29 19:26] LABS: ABSOLUTE BASOPHILS # (AUTO) 0.1 10^3/uL (0.0-0.2); ABSOLUTE EOSINOPHILS # (AUTO) 0.6 10^3/uL (0.0-0.6); ABSOLUTE LYMPHOCYTES (AUTO) 3.7 10^3/uL (0.5-4.7); ABSOLUTE MONOCYTES (AUTO) 0.8 10^3/uL (0.1-1.4); ABSOLUTE NEUT (AUTO) 10.5 10^3/uL (1.7-8.2); BASOPHILS % (AUTO) 0.7 % (0-2); EOSINOPHILS % (AUTO) 3.9 % (0-6); HEMATOCRIT 37.8 % (36.0-47.0); HEMOGLOBIN 12.5 g/dL (12.0-15.5); LYMPHOCYTES % (AUTO) 23.7 % (13-45); MEAN CORPUSCULAR HEMOGLOBIN 27.6 pg (27.0-33.4); MEAN CORPUSCULAR VOLUME 84 fl (80-97); MONOCYTES % (AUTO) 5.1 % (3-13); PLATELET COUNT 467 10^3/uL (150-450); RED BLOOD COUNT 4.53 10^6/uL (3.72-5.28); RED CELL DISTRIBUTION WIDTH 15.2 % (11.5-14.0); SEGMENTED NEUTROPHILS % (AUTO) 66.6 % (42-78); TOTAL CELLS COUNTED % (AUTO) 100 %; WHITE BLOOD COUNT 15.8 10^3/uL (4.0-10.5)
[2020-05-29] MEDS ORDERED: PROCHLORPERAZINE EDISYLATE INJ 10 MG/2 ML VIAL IV ONE (19:34)
[2020-05-29] MEDS ORDERED: DIPHENHYDRAMINE HCL 50 MG/ML VIAL IV ONE (19:34)
[2020-05-29 19:46] LABS: ALBUMIN 3.8 g/dL (3.5-5.0); ALKALINE PHOSPHATASE 97 U/L (38-126); ANION GAP 7 (5-19); ASPARTATE AMINO TRANSFERASE 91 U/L (14-36); BILIRUBIN,DIRECT 0.1 mg/dL (0.0-0.4); BILIRUBIN,TOTAL 0.3 mg/dL (0.2-1.3); BLOOD UREA NITROGEN 11 mg/dL (7-20); CALCIUM 9.7 mg/dL (8.4-10.2); CARBON DIOXIDE 30 mmol/L (22-30); CHLORIDE 99 mmol/L (98-107); GLUCOSE 206 mg/dL (75-110); POTASSIUM 4.1 mmol/L (3.6-5.0); TOTAL PROTEIN 7.3 g/dL (6.3-8.2)
[2020-05-29 22:44] LABS: AMORPHOUS SEDIMENT,URINE TRACE /HPF; APPEARANCE,URINE CLOUDY; BILIRUBIN,URINE NEGATIVE (NEGATIVE); CALCIUM OXALATE CRYSTALS,URINE FEW /HPF; COLOR,URINE AMBER; GLUCOSE, URINE NEGATIVE (NEGATIVE); KETONES,URINE NEGATIVE (NEGATIVE); LEUKOCYTE ESTERASE,URINE NEGATIVE (NEGATIVE); NITRITE,URINE NEGATIVE (NEGATIVE); PROTEIN,URINE 30 mg/dL (NEGATIVE)
[2020-05-29 23:35] VITALS: BP 136/76
== END 2020-05-29 23:39 | disposition home or self-care (01) ==
LOC: ER 18:03
DX: K62.5 Hemorrhage of anus and rectum (principal); K64.9 Unspecified hemorrhoids; F17.200 Nicotine dependence, unspecified, uncomplicated; E11.9 Type 2 diabetes mellitus without complications; Z88.0 Allergy status to penicillin; Z88.3 Allergy status to other anti-infective agents; Z88.2 Allergy status to sulfonamides
CPT/HCPCS: 99284; 96374; 96375; 86900; 86901; 36415; 86850; 83690; 85025; 81025; 80053; 81001; J1200; J0780